=== PATIENT | female | born 1955 | race African-American/Black ===

== ENCOUNTER 2021-03-14 15:40 | Emergency (ER) | payer OTHER ==
[~2021-03-14] VITALS: Ht 162.6 cm; Wt 78.0 kg
[~2021-03-14 15:40] MED LIST: EZET10TA13 PO; FURO40TA5 PO; GABA-532 PO; GLIP10TA10 PO; LOSA100T3 PO; MERC50TA PO; METH5TAB2 PO; MOME13HF INH; OMEP20CA14 PO; OXYC-100 PO; PRED5TAB48 PO; VERA240T PO; WARF-53 PO
[2021-03-14 16:42] LABS: BASOPHILS % 1.3 % (0.0-2.0); EOSINOPHILS % 0.5 % (0.0-5.0); HEMATOCRIT. 41.7 % (36.0-48.0); HEMOGLOBIN. 13.9 g/dL (12.0-16.0); LYMPHOCYTES % 49.2 % (20.0-50.0); MEAN CORPUSCULAR HEMOGLOBIN 35.1 pg (28.0-32.0); MEAN CORPUSCULAR VOLUME 105.1 fL (81.0-99.0); MEAN PLATELET VOLUME 9.2 fl (7.4-10.4); MONOCYTES % 8.7 % (2.0-8.0); NEUTROPHILS % 40.3 % (40.0-76.0); PLATELET 226 x1000/uL (130-400); RED BLOOD CELL COUNT 3.97 mill/uL (4.2-5.4)
[2021-03-14 16:50] LABS: CHLORIDE 102 mEq/L (98-107)
[2021-03-14] MEDS ORDERED: DIPHENHYDRAMINE 50MG/ML VIAL IV ONE (19:15)
[2021-03-14] MEDS ORDERED: METHYLPREDNISOLONE SOD SUCC 125 MG/2 ML VIAL IV ONE (19:15)
[2021-03-14] MEDS ORDERED: AZITHROMYCIN 500 MG in DEXT 5% WATER 250 ML IV SCH (20:45)
[2021-03-14] MEDS ORDERED: POTASSIUM CHLORIDE 20MEQ TABLET SR PO ONE (20:45)
[2021-03-14] MEDS ORDERED: POTASSIUM CHLORIDE INJ 40 MEQ in DEXT 5% WATER 250 ML IV ONE (20:45)
[2021-03-14] MEDS ORDERED: CEFTRIAXONE 1 G PREMIX 50 ML IV ONE (20:45)
[2021-03-14] MEDS ORDERED: IOHEXOL-300 100 ML BOTTLE ONE (23:22)
[2021-03-14] MEDS ORDERED: IOHEXOL-350 100 ML BOTTLE ONE (23:22)
[2021-03-15 00:25] VITALS: BP 137/69
== END 2021-03-15 00:47 | disposition short-term general hospital (02) ==
LOC: ER 15:40 → CANBEDREQ 18:03 → ER 03-15 00:47
DX: J18.9 Pneumonia, unspecified organism (principal); R06.03 Acute respiratory distress; E87.6 Hypokalemia; E11.9 Type 2 diabetes mellitus without complications; I10 Essential (primary) hypertension; Z20.822 Contact with and (suspected) exposure to COVID-19; Z86.711 Personal history of pulmonary embolism; Z88.2 Allergy status to sulfonamides; Z91.041 Radiographic dye allergy status
CPT/HCPCS: 36415; 71045; 71275; 80053; 83880; 84484; 85025; 87040; 93005; 96365; 96368; 96375; 99291; C9803; J0456; J0696; J1200; J2930; J3480; J7060; Q9967; U0003; Z7610

== ENCOUNTER 2022-09-10 10:43 | Inpatient (IN) | payer OTHER ==
[~2022-09-10] VITALS: Ht 154.9 cm; Wt 68.0 kg
[~2022-09-10 10:43] MED LIST changes: +METH-816 PO; -METH5TAB2 PO; -MOME13HF INH; +MOME13HF11 INH
[2022-09-10] MEDS ORDERED: MORPHINE SULFATE 4 MG/ML CPJ (NOT FOR IM USE) IV STA (11:14)
[2022-09-10] MEDS ORDERED: ONDANSETRON HCL 4MG/2ML INJ IV ONE (11:45)
[2022-09-10 12:16] LABS: EOSINOPHILS % 0.9 % (0.0-5.0); HEMOGLOBIN. 11.6 g/dL (12.0-16.0); LYMPHOCYTES % 41.1 % (20.0-50.0); MEAN CORPUSCULAR VOLUME 98.9 fL (81.0-99.0); MEAN PLATELET VOLUME 8.3 fl (7.4-10.4); MONOCYTES % 11.1 % (2.0-8.0); NEUTROPHILS % 45.9 % (40.0-76.0); PLATELET 290 x1000/uL (130-400); RED BLOOD CELL COUNT 3.64 mill/uL (4.2-5.4); RED CELL DISTRIBUTION WIDTH 23.5 % (11.6-14.6)
[2022-09-10 12:27] LABS: INR 1.2
[2022-09-10 12:29] LABS: CHLORIDE 105 mEq/L (98-107)
[2022-09-10] MEDS ORDERED: MORPHINE SULFATE 4 MG/ML CPJ (NOT FOR IM USE) IV ONE (13:00)
[2022-09-10 14:42] LABS: PLATELET ESTIMATE NORMAL
[2022-09-10 16:04] VITALS: BP 181/73
[2022-09-10 16:05] VITALS: BP 181/73
[2022-09-10] MEDS ORDERED: ONDANSETRON HCL 4MG/2ML INJ IV PRN (17:30)
[2022-09-10] MEDS ORDERED: ACETAMINOPHEN 325MG TABLET PO PRN (17:30)
[2022-09-10] MEDS ORDERED: DEXTROSE 50% WATER 50ML SYRINGE IV PRN (17:45)
[2022-09-10] MEDS ORDERED: ALEN70TA79 PO (17:54)
[2022-09-10] MEDS ORDERED: LOVA10TA MT (17:54)
[2022-09-10] MEDS ORDERED: DABI150C MT (17:54)
[2022-09-10] MEDS ORDERED: MERC50TA MT (17:54)
[2022-09-10] MEDS ORDERED: SIME80TA15 MT (17:54)
[2022-09-10] MEDS ORDERED: LOSA50TA3 MT (17:54)
[2022-09-10] MEDS ORDERED: GABA-290 MT (17:54)
[2022-09-10] MEDS ORDERED: OMEP20TA15 MT (17:54)
[2022-09-10] MEDS ORDERED: LOVA10TA54 MT (17:54)
[2022-09-10] MEDS ORDERED: PREDNISONE 10MG TABLET PO SCH (18:00)
[2022-09-10] MEDS ORDERED: LOSARTAN POTASSIUM 50 MG TABLET PO SCH (18:00)
[2022-09-10] MEDS ORDERED: ENOXAPARIN 40MG/0.4ML SYR SUBCUT SCH (18:00)
[2022-09-10] MEDS ORDERED: BLOOD SUGAR DIAGNOSTIC STRIP TEST SCH (21:00)
[2022-09-10] MEDS ORDERED: INSULIN LISPRO 100 UNITS/ML SUBCUT SCH (21:00)
[2022-09-11] MEDS ORDERED: ASPIRIN 81MG TABLET PO SCH (09:00)
== END 2022-09-10 20:28 | disposition left against medical advice (07) | DRG 280 ==
LOC: ER 10:43 → 3WST 13:52 → EDBEDREQ 13:58 → EDBEDREQTM 13:58
PROVIDERS: ADMIT Internal Medicine; ATTEND Internal Medicine
DX: I21.4 Non-ST elevation (NSTEMI) myocardial infarction (principal); I50.43 Acute on chronic combined systolic (congestive) and diastolic (congestive) heart failure; E44.0 Moderate protein-calorie malnutrition; J44.9 Chronic obstructive pulmonary disease, unspecified; I11.0 Hypertensive heart disease with heart failure; E11.9 Type 2 diabetes mellitus without complications; F17.210 Nicotine dependence, cigarettes, uncomplicated; E78.00 Pure hypercholesterolemia, unspecified; Z88.1 Allergy status to other antibiotic agents; Z79.01 Long term (current) use of anticoagulants; Z86.711 Personal history of pulmonary embolism; Z87.01 Personal history of pneumonia (recurrent); Z53.29 Procedure and treatment not carried out because of patient's decision for other reasons; E87.6 Hypokalemia
CPT/HCPCS: 36415; 71045; 80053; 82962; 83036; 83880; 84484; 85025; 93005; 99291; J2270; J2405